=== PATIENT | female | born 1970 | race Caucasian/White ===

== ENCOUNTER 2016-11-04 17:03 | Emergency (ER) | payer SELFPAY ==
[~2016-11-04] VITALS: Ht 157.5 cm; Wt 109.8 kg
[2016-11-04 17:35] VITALS: BP 177/92
--- NOTE | 2016-11-05 04:21 | ED.ADGEN ---
Past History Past Medical History: Constipation, Diabetes Past Surgical History: Cholecystectomy, Other Alcohol Use: None Drug Use: None Adult General Chief Complaint Chief Complaint Abdominal pain, constipation HPI HPI Patient is a 46-year-old female with history of diabetes, neuropathy an who recently relocated to the [facility] presents with intermittent laboratory abdominal pain with constipation for the past 2 weeks. Abdominal pain is described mild to moderate, intermittent various location. Patient states she has had a bowel movement over 2 weeks. Has nausea vomiting, diarrhea. Patient has taken [id number] laxative twice with out any relief. No urinary frequency urgency, dysuria or flank pain. No other acute symptoms or complaints. Review of Systems Review of Systems Review symptoms as per history of present illness. All other review symptoms are negative. Physical Exam Physical Exam Constitutional: Well developed, well nourished, no acute distress, non-toxic appearance. HENT: Normocephalic, atraumatic, bilateral external ears normal, oropharynx moist, nose normal. Eyes: PERRLA, EOMI, conjunctiva normal. Neck: Normal range of motion. Cardiovascular:Heart rate regular rhythm, no murmur. Lungs & Thorax: Bilateral breath sounds clear to auscultation. Abdomen: Bowel sounds normal, soft, mild distention, nonspecific abdominal pain without tenderness. Skin: Warm, dry. Back: No tenderness. Extremities: No tenderness. Neurologic: Alert and oriented X 3, normal motor function, normal sensory function. Psychologic: Affect normal, judgement normal, mood normal. Current Patient Data Vital Signs Vital Signs Date Time Temp Pulse Resp B/P (MAP) Pulse Ox O2 Delivery O2 Flow Rate FiO2 11/04/16 17:35 98.1 107 22 98 EKG EKG [] Radiology/Procedures Radiology/Procedures [] Course & Med Decision Making Course & Med Decision Making Pertinent Labs and Imaging studies reviewed. (See chart for details) [Nondescript abdominal pain constipation without abdominal, will treat supportively with PCP follow-up. Final Impression Final Impression 1. abdominal pain 2. Constipation] Problems: Dragon Disclaimer Dragon Disclaimer This electronic medical record was generated, in whole or in part, using a voice recognition dictation system. BENNETT HSU DO Nov 05, 2016 04:21
== END 2016-11-04 19:10 | disposition home or self-care (01) ==
LOC: ER 17:03
DX: K59.00 Constipation, unspecified (principal); E11.40 Type 2 diabetes mellitus with diabetic neuropathy, unspecified
CPT/HCPCS: 99283

== ENCOUNTER → 2017-05-17 | Outpatient (CLI) | payer OTHER ==
--- NOTE | 2017-05-17 11:42 | RAD ---
Right knee, 2 views, 05/17/1999 813: History: Disability determination There is moderate narrowing of the medial compartment of the right knee joint. There is moderate marginal spurring at the knee joint and at the patellofemoral articulation. No fracture or dislocation is identified. Several phlebolithic type densities are noted in the upper aspect of the lower leg. IMPRESSION: 1. Moderate degenerative change. 2. No acute bony abnormality is detected. Lumbar spine, 3 views, 05/17/2017: History: Prior back surgery, disability determination There are left-sided pedicle screws at L5 and S1 attached to a longitudinally oriented posterior fixation rods. There is a partially radiopaque disc spacer within the posterior aspect of the L5-1 disc space. There is narrowing of the L5-S1 disc space with marginal spurring. There is a suggestion of mild chronic anterolisthesis at L5-S1, although not clearly defined on the lateral view due to obliquity of patient positioning. The lumbar vertebral heights are well-maintained. There are mild scattered marginal spurs. IMPRESSION: 1. Postsurgical changes at L5-S1 as described above. 2. Probable minimal chronic anterolisthesis at L5-S1.
== END | disposition home or self-care (01) ==
LOC: DXRAD 09:51
PROVIDERS: ATTEND Family Medicine
DX: M54.5 Low back pain (principal); M25.561 Pain in right knee; Z98.890 Other specified postprocedural states
CPT/HCPCS: 72100; 73560